=== PATIENT | female | born 1945 | race Caucasian/White ===

== ENCOUNTER 2016-04-19 09:45 | Emergency (ER) | payer MEDICARE, OTHER ==
[~2016-04-19] VITALS: Ht 165.1 cm; Wt 70.0 kg
--- NOTE | 2016-04-19 10:08 | PD ---
HPI Chief Complaint: ENT Complaint Time Seen by Provider: 10:01 Travel History International Travel<30 days: No Contact w/Intl Traveler<30days: No Traveled to known affect area: No History of Present Illness HPI 70-year-old female with PMH of hypertension presents to the ED for evaluation of three-day history of sore throat, nonproductive cough, clear rhinorrhea and right-sided ear pain. Gradual onset. She denies fever, chills, headache, nausea or vomiting. The patient flew from [place] approximately 1 week ago. No known sick contacts. NKDA. PFSH Past Medical History Cardiovascular Problems: Yes (HTN) Thyroid Disease: Yes Social History Alcohol Use: No Tobacco Use: No Substance Use: No Allergies-Medications (Allergen,Severity, Reaction): Coded Allergies: No Known Allergies (Unverified , 04/19/16) Reported Meds & Prescriptions Reported Meds & Active Scripts Active Amoxicillin 500 Mg Cap 500 Mg PO BID 10 Days Review of Systems Except as stated in HPI: all other systems reviewed are Neg Physical Exam Narrative GENERAL: Well-nourished, well-developed white female in no acute distress. SKIN: Warm and dry. HEAD: Normocephalic. Atraumatic. EYES: No scleral icterus. No injection or drainage. PERRLA. EOMI. ENT: Pearly hays tympanic membranes bilaterally. Nasal mucosa is moist. Tonsils 1+ bilaterally. Oropharynx mildly erythematous with scattered white exudates. Airway patent. Uvula midline. NECK: Supple, trachea midline. No JVD or lymphadenopathy. CARDIOVASCULAR: Regular rate and rhythm without murmurs, gallops, or rubs. RESPIRATORY: Breath sounds clear and equal bilaterally. No accessory muscle use. GASTROINTESTINAL: Abdomen soft, non-tender, nondistended. + Bowel sounds MUSCULOSKELETAL: No cyanosis, or edema. The patient is ambulatory moves extremities spontaneously. BACK: Nontender without obvious deformity. No CVA tenderness. Data Data Last Documented VS Vital Signs Date Time Temp Pulse Resp B/P Pulse Ox O2 Delivery O2 Flow Rate FiO2 04/19/16 10:18 98.1 70 16 135/69 98 Orders Group A Rapid Strep Screen (04/19/16 09:53) MDM Medical Decision Making Medical Screen Exam Complete: Yes Emergency Medical Condition: Yes Differential Diagnosis Viral syndrome versus sinusitis versus group A strep pharyngitis versus influenza versus pharyngitis versus other Narrative Course 70-year-old female presents to the ED for evaluation of 3 day history of sore throat, nonproductive cough, clear rhinorrhea and ear pain. Denies fevers, chills, headache, nausea or vomiting. Vitals reviewed. Physical exam reveals a nontoxic-appearing white female in no acute distress. Tympanic membranes are pearly hays bilaterally. Oropharynx with 1+ tonsils, mildly erythematous, scattered white exudates. Otherwise unremarkable. Culture obtained and pending. Will treat empirically for group A strep. 5oo milligrams amoxicillin twice a day 10 days. Patient's instructed to take all medication, even if symptoms resolve, follow up with her primary care upon return to [place]. She indicated understanding of the instructions and is amenable to plan of care. She is stable and discharged home. Diagnosis Primary Impression: Acute streptococcal pharyngitis Referrals: Primary Care Physician Patient Instructions: General Instructions, Strep Throat (ED) Additional Instructions: Rest, hydrate. Warm salt water gargles may help to improve your pain symptoms. Take all antibiotics as prescribed, even if your symptoms resolve. Follow-up with the primary care upon return home. Return to the ED for any urgent or emergent medical condition. Med/Other Pt SpecificInfo: Prescription(s) given Scripts Amoxicillin 500 Mg [id number] Mg PO BID 10 Days Ref 0 Prov:Kranthi Moore MD 04/19/16 Disposition: 01 DISCHARGE HOME Condition: Stable Svitlana Moreno Apr 19, 2016 10:08
[2016-04-19] MEDS ORDERED: AMOX500C PO (10:09)
[2016-04-19 10:18] VITALS: BP 135/69; TEMP 98.1
== END 2016-04-19 10:41 | disposition home or self-care (01) ==
LOC: NEPB 09:45
DX: J02.0 Streptococcal pharyngitis (principal); R05 Cough; J34.89 Other specified disorders of nose and nasal sinuses; H92.01 Otalgia, right ear; I10 Essential (primary) hypertension; E07.9 Disorder of thyroid, unspecified
CPT/HCPCS: 87081; 87880; 99283